=== PATIENT | female | born 1965 | race Caucasian/White ===

== ENCOUNTER 2019-01-16 07:51 | Outpatient (CLI) | payer OTHER ==
--- NOTE | 2019-01-18 08:38 | EEG ---
Referring Physician: Renato UMNROE EEG # [id number] TEST TYPE: ROUTINE OUTPATIENT REPORT: AN EEG USING THE [employer] TEN-TWENTY SYSTEM OF ELECTRODE PLACEMENT WAS PERFORMED. The waking background is a medium amplitude 9-10 hertz Alpha frequency. No sleep was seen. Photic stimulation was unremarkable. No epileptiform features were seen. IMPRESSION: THIS IS A NORMAL AWAKE EEG. Night Nurse: KAYCEE Glue Spreader: EEG.[email or web address] [email or web address]
== END 2019-01-16 07:52 | disposition home or self-care (01) ==
LOC: EEG 07:51
PROVIDERS: ATTEND Family Medicine
DX: R55 Syncope and collapse (principal)
CPT/HCPCS: 95816